=== PATIENT | male | born 1955 | race Caucasian/White ===

== ENCOUNTER 2021-12-14 13:44 | Outpatient (CLI) | payer OTHER, SELFPAY | END 2021-12-14 13:45 | disposition home or self-care (01) | LOC: ANHAUDIO 13:46 | PROVIDERS: PCP Family Medicine; Visit Provider Family Medicine | DX: H91.90 Unspecified hearing loss, unspecified ear (principal) | CPT/HCPCS: 92557; 92567 ==

== ENCOUNTER 2022-10-11 07:00 | Outpatient (RCR) | payer OTHER, SELFPAY ==
--- NOTE | 2022-06-28 10:38 | PCPTNOTE ---
Patient called & cancelled scheduled evaluation this date due to reported insurance issues. Pt declined to reschedule at this time and informed motel front desk clerk he would call when he could begin therapy.
== END 2022-10-11 14:29 | disposition home or self-care (01) ==
LOC: ANHHIPT 07:00
PROVIDERS: PCP Nurse Practitioner Family; Visit Provider Family Medicine
DX: M72.2 Plantar fascial fibromatosis (principal)
CPT/HCPCS: 99199

== ENCOUNTER 2022-10-11 10:00 | Outpatient (RCR) | payer OTHER, SELFPAY ==
--- NOTE | 2022-07-22 16:25 | BUPTOPEVAL1 ---
Assessment and note entered by Becki Mosley, PT Evaluation Information Assessment Status Evaluation Diagnosis plantar fascial fibromatosis Onset April 2022 Subjective Information Was walking a lot on vacation and pain started after returning from vacation. Pain got really bad . Has had similar pains in the past that has gone away, but this time didn't go away. After a month went into the doctor. Pt reports today is best foot has felt in a long time. Is wearing a brace today. Reported Pain Level Pain Score 1: Self Report Assessment PT Clinical Summary Pt presents w/ c/o right plantar fibromatosis. Evaluation demo's falling arches and splaying forefoot compared to left, decreasd gastroc and soleous length, decreased great toe extension all effecting stress on plantar aspect of foot and increasing pain. Pt reports he would also like to start running again for fitness. Pt will thus benefit from physical therapy in order to addres deficits, pain, alignment, and educate pt on safety with advancing activity levels. Plan of Care Interventions Check Out for Orthotic/Pr,Electrical Stimulation, Hot Pack/Cold Pack,Manual Therapy,Neuro Re- education,Patient/Caregiver Educati,Therapeutic Activities,Therapeutic Exercise,Ultrasound PT Services Indicated Yes Treatment Frequency and 1-2x weekly x 6 weeks Duration These treatments will address the objective and functional deficits as defined above. The patient will be advanced safely and appropriately in order for the patient to progress towards his/her prior level of function. Additional exercises will be introduced and as well as a comprehensive home exercise program upon discharge, if needed, ?to ensure carryover of functional gains achieved in the clinic. This treatment plan has been reviewed and agreement upon by the patient.
--- NOTE | 2022-08-23 08:15 | PCPTNOTE ---
Patient called & cancelled scheduled appointment this date due to inclement weather
--- NOTE | 2022-08-30 16:32 | PTOPPROG ---
Assessment and note entered by Becki Mosley, PT Assessment Status Progress Report Diagnosis plantar fascial fibromatosis Onset April 2022 Subjective Information Pt reports yesterday morning he would have thought he didn't need therapy anymore. Yesterday afternoon went on a 2 mile walk that is actually short for his normal. Reports after sat for a while it tightened up . This morning went got up was limping again. Prior to yesterday was highest pain level was a 1/10 yesterday and today went up to a 5/10. Assessment PT Clinical Summary Pt reports he had been improving until yesterday when he took a two mile walk. That evening he felt like he was tightening up again and was limping this morning getting out of bed. Today his pain is back up to a 4/10 when his worst pain levels had been at 2/10. Demo's improved ROM, continued increased muscle tone and spasms in gastrocs. Advised pt in next level of orthotic supports and initiated e-stim modality today. Plan on continuing therapy to shift focus to aggressive plan of care with increased modality application and assess pt with improved arch supports. Plan of Care Treatment Frequency and Cont 1x weekly x 6 weeks deep tissue work and arch Duration support work These treatments will address the objective and functional deficits as defined above. The patient will be advanced safely and appropriately in order for the patient to progress towards his/her prior level of function. Additional exercises will be introduced and as well as a comprehensive home exercise program upon discharge, if needed, ?to ensure carryover of functional gains achieved in the clinic. This treatment plan has been reviewed and agreement upon by the patient.
--- NOTE | 2022-10-11 10:43 | PTOPDC ---
Assessment and note entered by Becki Mosley, PT Assessment Status Discharge Diagnosis plantar fascial fibromatosis Onset April 2022 Subjective Information Was doing well untli had one sharp pain on , Tuesday was off and on, Tuesday was a horrible day , Tuesday was ok. Used new inserts and discovered last night they didn't have the support he thought. Prior to this was getting so good didn't have to immediately put on supportive shoes, could walk without support. Prior to recent issue, felt 90% or better Reported Pain Level Pain Score 1: Self Report Assessment PT Clinical Summary Pt has attended therapy consistently for plantar fibromatosis. Pt reports today prior to flare up last week, he was feeling 90% improved overall. He reports being confident in his home exercises, use of arch supports, slowly increasing steps and speed, and when to access additional referral if needed. Pt has reached maximal benefit with therapy at this time thus is being discharged from current plan of care. Plan of Care Discharge
== END 2022-10-11 11:12 | disposition home or self-care (01) ==
LOC: ANHHIPT 10:00
PROVIDERS: PCP Nurse Practitioner Family; Visit Provider Family Medicine
DX: M72.2 Plantar fascial fibromatosis (principal)
CPT/HCPCS: 97014; 97110; 97140; 97161; G0283